=== PATIENT | male | born 1970 | race African-American/Black ===

== ENCOUNTER 2021-03-01 00:53 | Emergency (ER) | payer OTHER ==
[~2021-03-01] VITALS: Ht 182.9 cm; Wt 113.4 kg
--- NOTE | 2021-03-01 01:42 | NUR ---
pt bibself c/o h/i and auditory hallucinations. Pt aaox4 breathing evenly and unlabored. Pt attached to monitor and pox. Pt belongings taken and placed in locker. Sitter at bedside. Pt given blanket and call light within reach
--- NOTE | 2021-03-01 02:13 | NUR ---
COVID TEST COLLECTED AND SENT TO THE LAB.
--- NOTE | 2021-03-01 02:14 | NUR ---
URINE COLLECTED AND SENT TO THE LAB.
[2021-03-01 02:21] LABS: BASOPHILS # (AUTO) 0.1 K/uL (0.0-0.2); BASOPHILS % (AUTO) 1.2 % (0.0-2.0); EOSINOPHILS % (AUTO) 0.8 % (0.0-6.0); HEMATOCRIT 38 % (39-51); HEMOGLOBIN 13.2 g/dL (13.5-17.5); LYMPHOCYTES # (AUTO) 3.2 K/uL (0.8-4.8); LYMPHOCYTES % (AUTO) 45.5 % (20.0-44.0); MEAN CORPUSCULAR HGB CONC 34 g/dl (31.0-36.0); MEAN CORPUSCULAR VOLUME 92 fL (80-96); MONOCYTES # (AUTO) 0.6 K/uL (0.1-1.30); MONOCYTES % (AUTO) 8.3 % (2.0-12.0); NEUTROPHILS # (AUTO) 3.2 K/uL (1.8-8.9); NEUTROPHILS % (AUTO) 44.2 % (43.0-81.0); PLATELET COUNT (AUTO) 262 K/uL (150-450); RED BLOOD CELL COUNT(AUTO) 4.16 MIL/uL (4.5-6.0); WHITE BLOOD COUNT (AUTO) 7.1 K/uL (4.3-11.0)
[2021-03-01 02:21] LABS: BILIRUBIN,URINE SMALL (NEGATIVE); COLOR,URINE YELLOW (YELLOW); LEUKOCYTE ESTERASE ,URINE Negative (NEGATIVE); NITRITE, URINE Negative (NEGATIVE); PROTEIN,URINE 30 mg/dl (NEGATIVE); UGLUCOSE Negative (NEGATIVE); UROBILINOGEN,URINE 0.2 EU/dL (0.2)
[2021-03-01 02:36] LABS: ALANINE AMINOTRANSFERASE 33 U/L (12-78); ALBUMIN 3.4 g/dL (3.4-5.0); ALCOHOL, BLOOD < 3 mg/dL (0-0); ALKALINE PHOSPHATASE 86 U/L (46-116); ASPARTATE AMINOTRANSFERASE 16 U/L (15-37); BILIRUBIN,DIRECT 0.1 mg/dL (0.0-0.2); BILIRUBIN,TOTAL 0.2 mg/dL (0.2-1.0); CALCIUM, SERUM 9.3 mg/dL (8.5-10.1); CARBON DIOXIDE 27 mmol/L (21-32); CHLORIDE 106 mmol/L (98-107); CREATININE 1.4 mg/dL (0.6-1.3); GLUCOSE 136 mg/dL (74-106); POTASSIUM 3.4 mmol/L (3.5-5.1); SODIUM SERUM 141 mmol/L (136-145); TOTAL PROTEIN, SERUM 6.8 g/dL (6.4-8.2); UREA NITROGEN, BLOOD 14 mg/dL (7-18)
[2021-03-01 02:38] LABS: ACETAMINOPHEN < 2 ug/ml (10-30)
--- NOTE | 2021-03-01 03:00 | NUR ---
Patient is resting comfortably in bed with eyes closed. Easily aroused. VSS
--- NOTE | 2021-03-01 04:15 | NUR ---
pt sleeping, attached to monitor and pox, vss
--- NOTE | 2021-03-01 05:00 | NUR ---
Patient is resting comfortably in bed with eyes closed. Easily aroused. VSS
--- NOTE | 2021-03-01 06:00 | NUR ---
pt sleeping, attached to monitor, vss
--- NOTE | 2021-03-01 08:46 | NUR ---
GOLDY refaxed clinicals to [facility] [[address] [place] [address] [id number] FAX:[phone]] for inpatient psychiatric treatment.
--- NOTE | 2021-03-01 12:00 | NUR ---
SW attempted to meet with pt. bedside. Pt. sis sleeping not rousable by verbal cues. SW will be available as needed
--- NOTE | 2021-03-01 15:31 | NUR ---
PATIENT AGREED TO SPEAK WITH [facility]
--- NOTE | 2021-03-01 16:26 | NUR ---
SS Consult: SS Consult requested for drug abuse & homelessness. The pt. is a 50-year old Black male who presents to ED with c/o SI/HI. SW asked pt. if there is anyone specifically that he thinks of hurting. Pt. said "criminals".The pt. appears unkempt is A&O X4 and makes good eye contact. The pt. is irritable with anxious mood & affect. Pt. states he is experiencing auditory hallucinations. Pt. states he is having SI/ HI. SW explored pt.'s mental health Hx. Pt. states he has been diagnosed with Schizoaffective disorder and Depression and states he has neglected to be on his medication. SW explored pt.'s dug & ETOH Hx. Patient stated he is addicted to cocaine and uses "often". SW provided addiction resources and he accepted them. SW explored pt.'s living situation. Pt. admits he has been experiencing homelessness "since the age of 18". Pt. states he is ambulatory. SW explored pt.'s support system. Pt. states he has no support system. Pt. states he receives Food stamps & GR. Plan: SW has been [facility] for inpatient psychiatric treatment. Pt. is agreeable to voluntary psych hospitalization. Pt. refused to sign homeless waiver and it was placed in the chart. SW provided pt. with homeless, and mental health resources and pt. refused them: Year-round shelters: [facility] [place] [address] [place], [place] [address] ; [facility] [place] [address] [place] [address]; [facility] [address] [facility] [address] Winter Shelters: Leida Tejeda Provider: [facility] [place] Address: [address] [facility] [place], [address] # of Beds: 47 Population Served: [facility] 6 | [facility] Beatrice Dimas [place] Provider: [facility] Address: [address] [place] [address], [address] # of Beds: 66 Population Served: [place] Provider: [facility] Address: [address] [facility], [address] # of Beds: 56 Population Served: [facility] Aron Tejeda Provider: /[facility] Address: [address] [facility], [address] # of Beds: 49 Population Served: [facility] 8 | [facility] Provider: [facility] Address: [address] [facility] [place], [address] # of Beds: 37 Population Served: Coed Hygiene: [facility]: [address] [place] ; [facility] [address] [facility] ; [facility] [address] [facility] . Food Resources: [facility] at [facility]- [address] [facility]; Meet Each Need with Dignity ([facility]) [address] [facility] [place]; [facility] [address] [facility]; [facility] [address]64 [facility]. Mental Health resources provided: [facility] [address] [place], [place] [phone] ; [facility] [address] [facility] [address], [place] [address] ; [place] [facility] [address] [place] [address] ; [facility] [address] [place], [place] [phone] Healthcare Clinics: [facility] [address] [facility], [address] [place]. [place] ; [facility] [address] [facility] [address] [place] [address]; [facility] [place] [address] [facility] [place] [address] [phone] Counseling--[facility] [address], [place] [address] (Specializes in in-depth psychotherapy for emotional distress: anxiety, depression, interpersonal conflicts, life transitions, childhood abuse) [facility] [address] [place] [address] (Assist with solving problem marital difficulties, separation & divorce, aging parents, & grief, chronic & terminal illness) [facility] [address] [place] [address] (Deal with loss & grief, anxiety, marital difficulties) Homebound/Mental Health Services [address] [facility] [address] [place] [address] (Provide in-home mental services to people who are incapable of leaving their homes) [facility] Elder[facility] Senior Service/Resource Center [address] [place] [address] [facility] [address] [place] [address] PSYCHIATRIC OUTPATIENT SERVICES [facility] Partial Hospitalization and Intensive Outpatient Program (Managed Care and Apex Only)[address] [facility] [phone] [facility] Partial Hospitalization and Outpatient Rdbwgof[address]15 [facility] [address] [place], [place] [phone] [facility] [place] [id number] Mireya [facility] [address] [place], [place] [phone] [facility] Partial Hospitalization and Outpatient Owovjxl78116 eliNorth [place], [phone] Substance Abuse resources provided included: [facility] Substance Abuse Self-Helpline (SAS) ; [facility] [address] [facility]. [place] [address] ; [facility] [address] [facility] [address] ; [facility] [address] [place]. [place] [phone] ; [facility] [address] [facility] [address] ; [facility] [address] [facility] [address] ; [facility] [address] [facility] [phone] ; [facility] Substance Abuse Helpline(SAS)[facility] ; [facility] ; [facility]; [facility] [place]; [facility] [place]; [facility] [place]; [facility] [place]; [facility] [place]; [facility] [place]; [facility]'s [place], [facility]. [place]; Alcoholics Anonymous -SFV; Jz-Cthu-Zxotabb ; Marijuana Anonymous -SFV; Narcotics Anonymous www.na.org;
--- NOTE | 2021-03-01 19:15 | NUR ---
pt watching tv quietly, attached to monitor and pox.
[2021-03-01] MEDS ORDERED: CLONIDINE HCL 0.1 MG TABLET ONE (21:56)
[2021-03-01] MEDS ORDERED: CLONIDINE HCL 0.1 MG TABLET PO ONE (22:00)
--- NOTE | 2021-03-01 22:00 | NUR ---
Patient is resting comfortably in bed with eyes closed. Easily aroused. VSS
--- NOTE | 2021-03-02 06:18 | NUR ---
re faxed face sheet and clinicals to [facility] and called Art for follow up. he will call us back fw/ an update
--- NOTE | 2021-03-02 06:21 | NUR ---
Per Art at [facility]: Pt accepted to [facility] by Dr Morales. Number for report [phone]. Please send pt after [phone]
--- NOTE | 2021-03-02 06:30 | NUR ---
[facility] ETA: [phone]
--- NOTE | 2021-03-02 08:03 | NUR ---
THE PATIENT IS RECEIVED IN ER BED #13. ALERT AND ORIENTED X4. DENIES PAIN. IN ROOM AIR AND DENIES SOB. RESPIRATION REGULAR AND UNLABORED. HAVING BREAKFAST. TOLERATES PROVIDED MEAL WELL. WILL CONTINUE TO MONITOR THE PATIENT.
--- NOTE | 2021-03-02 09:17 | NUR ---
REPORT GIVEN TO NURSE LUPILLO FROM JULY CARRILLO
[2021-03-02 09:20] VITALS: BP 141/84
--- NOTE | 2021-03-02 09:20 | NUR ---
THE PATIENT IS TRANSFERED TO [facility] IN STABLE CONDITION AND VIA ARRANGED TRANSPO
== END 2021-03-02 09:21 ==
LOC: ER 01:02
DX: F29 Unspecified psychosis not due to a substance or known physiological condition (principal); R45.850 Homicidal ideations; F20.9 Schizophrenia, unspecified; F31.9 Bipolar disorder, unspecified; F14.10 Cocaine abuse, uncomplicated; R94.31 Abnormal electrocardiogram [ECG] [EKG]; I10 Essential (primary) hypertension; Z59.00 Homelessness unspecified; Z20.822 Contact with and (suspected) exposure to COVID-19; R00.1 Bradycardia, unspecified; Z82.49 Family history of ischemic heart disease and other diseases of the circulatory system
CPT/HCPCS: 36415; 80048; 80076; 80143; 80307; 80320; 81003; 84484 ×2; 85025; 87426; 93005 ×2; 99285; C9803; G0480